=== PATIENT | female | born 1935 | race Two or more races ===

== ENCOUNTER 2016-08-11 13:07 | Inpatient (IN) | payer MEDICAID ==
[2016-08-11] MEDS ORDERED: PRINIVIL20 M1 PO (13:59)
[2016-08-11] MEDS ORDERED: IBUPROFEN200 M2 PO (14:18)
[2016-08-11 15:11] LABS: BASO % 0.5 % (0-2); BASO ABSOLUTE COUNT 0.1 tho/cmm (0.0-0.2); EOSINOPHIL ABSOLUTE COUNT 0.1 tho/cmm (0.0-0.7); HCT-HEMATOCRIT 41.5 % (34.0-49.0); HGB-HEMOGLOBIN 13.8 gm/dl (12.0-15.5); LYMPH ABSOLUTE COUNT 2.5 tho/cmm (0.8-4.5); MCH (MEAN CORPUSCULAR HGB) 27.9 pg (28.0-32.0); MCHC MEAN CORPUSCULAR HGB CONC 33.3 % (32.0-36.0); MEAN PLATELET VOLUME 9.9 cmc (9.4-12.4); MONO % 6.6 % (0-12); MONOCYTE ABSOLUTE COUNT 0.9 tho/cmm (0.0-1.2); NEUTROPHIL ABSOLUTE COUNT 9.5 tho/cmm (1.6-8.0); NEUTROPHIL-AUTOMATED 9.5 tho/cmm (1.6-8.0); NEUTROPHILS % 72.9 % (40-80); PLATELET COUNT 344 tho/cmm (150-450); RED BLOOD COUNT 4.94 mil/cmm (4.00-5.20); RED CELL DISTRIBUTION WIDTH 11.8 % (12.4-16.4); WHITE BLOOD COUNT 13.1 tho/cmm (4.0-10.0)
[2016-08-11 15:26] LABS: ALB/GLOB RATIO 0.7 (0.8-2.0); ALBUMIN 2.9 g/dl (3.5-5.0); ALKALINE PHOSPHATASE 103 U/L (33-138); ANION GAP 12 mmol/L (0-20); AST/SGOT 10 U/L (10-40); BILIRUBIN,TOTAL 0.8 mg/dl (0-1.5); BLOOD UREA NITROGEN 13 mg/dl (6-24); CALCIUM 9.4 mg/dl (8.5-10.5); CARBON DIOXIDE-VENOUS 28 mmol/L (22-32); CHLORIDE 99 mmol/l (96-110); CREATININE 0.96 mg/dl (0.50-1.10); POTASSIUM 4.4 mmol/L (3.7-5.1); SODIUM 135 mmol/L (135-145); eGFR VALUE FOR BLACK 65 mL/Min
[2016-08-11 15:33] LABS: ALT/SGPT <10 U/L (12-78)
[2016-08-11 15:34] LABS: GLUCOSE 505 mg/dL (70-110)
[2016-08-11 18:26] LABS: URINE BILIRUBIN NEGATIVE (NEG); URINE BLOOD LARGE (NEG); URINE GLUCOSE (UA) LARGE (NEG); URINE KETONE NEGATIVE (NEG); URINE LEUKOCYTE ESTERASE POSITIVE (NEG); URINE NITRITE NEGATIVE (NEG); URINE PROTEIN NEGATIVE (NEG); URINE SPECIFIC GRAVITY 1.015 (1.003-1.030)
[2016-08-11 18:29] LABS: URINE APPEARANCE CLEAR; URINE COLOR YELLOW
[2016-08-11 18:47] LABS: URINE EPITHELIAL CELLS 0-5 /[HPF] (0-10)
[2016-08-11 20:48] LABS: MAGNESIUM 1.7 mg/dl (1.8-2.6)
[2016-08-11 23:02] LABS: ANION GAP 10 mmol/L (0-20); BLOOD UREA NITROGEN 11 mg/dl (6-24); CALCIUM 8.7 mg/dl (8.5-10.5); CARBON DIOXIDE-VENOUS 28 mmol/L (22-32); CHLORIDE 105 mmol/l (96-110); CREATININE 0.63 mg/dl (0.50-1.10); GLUCOSE 263 mg/dL (70-110); POTASSIUM 3.6 mmol/L (3.7-5.1); SODIUM 139 mmol/L (135-145); eGFR VALUE FOR BLACK >90 mL/Min
[2016-08-12 06:02] LABS: BASO % 0.5 % (0-2); BASO ABSOLUTE COUNT 0.1 tho/cmm (0.0-0.2); EOS % 2.9 % (0-7); EOSINOPHIL ABSOLUTE COUNT 0.3 tho/cmm (0.0-0.7); HCT-HEMATOCRIT 35.7 % (34.0-49.0); HGB-HEMOGLOBIN 11.9 gm/dl (12.0-15.5); IMMATURE GRANULOCYTES ABSOLUTE 0.03 tho/cmm (0-0.03); IMMATURE GRANULOCYTES PERCENT 0.3 % (0-0.3); LYMPH % 25.8 % (20-45); LYMPH ABSOLUTE COUNT 2.8 tho/cmm (0.8-4.5); MCH (MEAN CORPUSCULAR HGB) 28.3 pg (28.0-32.0); MCHC MEAN CORPUSCULAR HGB CONC 33.3 % (32.0-36.0); MEAN PLATELET VOLUME 9.5 cmc (9.4-12.4); MONO % 8.6 % (0-12); MONOCYTE ABSOLUTE COUNT 0.9 tho/cmm (0.0-1.2); NEUTROPHIL ABSOLUTE COUNT 6.8 tho/cmm (1.6-8.0); NEUTROPHIL-AUTOMATED 6.8 tho/cmm (1.6-8.0); NEUTROPHILS % 61.9 % (40-80); PLATELET COUNT 287 tho/cmm (150-450); RED CELL DISTRIBUTION WIDTH 12.2 % (12.4-16.4)
[2016-08-12 06:15] LABS: ANION GAP 9 mmol/L (0-20); BLOOD UREA NITROGEN 11 mg/dl (6-24); CALCIUM 8.5 mg/dl (8.5-10.5); CARBON DIOXIDE-VENOUS 28 mmol/L (22-32); CHLORIDE 107 mmol/l (96-110); CREATININE 0.54 mg/dl (0.50-1.10); POTASSIUM 3.5 mmol/L (3.7-5.1); SODIUM 140 mmol/L (135-145); eGFR VALUE FOR BLACK >90 mL/Min
[2016-08-12 06:22] LABS: GLUCOSE 112 mg/dL (70-110)
--- NOTE | 2016-08-12 17:43 | NUR ---
PATIENT HAS BEEN COMPLAINING OF VAGINAL PAIN THROUGHOUT THE DAY. PELVIC US DONE AND WET MOUNT COLLECTED. DR RUCKER CONSULTED FOR [place]. WILL CONTINUE TO MONITOR AND TREAT SYMPTOMS UNTIL ON SEES AND GIVES FURTHER ORDERS. PATIENT HAS BLISTER LIKE CYST/SCARS NOTED TO EXTERIOR PELVIS THAT ARE NOT PAINFUL. PATIENT STATES PAIN IS COMING FROM "INSIDE". BLOOD SUGARS HAVE BEEN LESS THAN 250 TODAY AND CONTINUE TO BE MOSTLY CONTROLLED BY MODERATE SSI. PATIENT STARTED ON ORAL DIABETIC MEDICATIONS AND NURTITION TO SEE ABOUT DIABETIC DIET.
[2016-08-13 06:09] LABS: BASO % 0.3 % (0-2); EOS % 2.9 % (0-7); EOSINOPHIL ABSOLUTE COUNT 0.3 tho/cmm (0.0-0.7); HGB-HEMOGLOBIN 12.6 gm/dl (12.0-15.5); IMMATURE GRANULOCYTES ABSOLUTE 0.04 tho/cmm (0-0.03); IMMATURE GRANULOCYTES PERCENT 0.3 % (0-0.3); LYMPH % 24.3 % (20-45); LYMPH ABSOLUTE COUNT 2.9 tho/cmm (0.8-4.5); MCH (MEAN CORPUSCULAR HGB) 28.6 pg (28.0-32.0); MCHC MEAN CORPUSCULAR HGB CONC 34.1 % (32.0-36.0); MCV (MEAN CELL VOLUME) 83.9 fl (82.0-96.0); MEAN PLATELET VOLUME 9.5 cmc (9.4-12.4); MONO % 7.8 % (0-12); MONOCYTE ABSOLUTE COUNT 0.9 tho/cmm (0.0-1.2); NEUTROPHIL ABSOLUTE COUNT 7.6 tho/cmm (1.6-8.0); NEUTROPHIL-AUTOMATED 7.6 tho/cmm (1.6-8.0); NEUTROPHILS % 64.4 % (40-80); PLATELET COUNT 279 tho/cmm (150-450); RED BLOOD COUNT 4.41 mil/cmm (4.00-5.20); WHITE BLOOD COUNT 11.8 tho/cmm (4.0-10.0)
[2016-08-13 06:20] LABS: ANION GAP 11 mmol/L (0-20); BLOOD UREA NITROGEN 8 mg/dl (6-24); CALCIUM 8.5 mg/dl (8.5-10.5); CARBON DIOXIDE-VENOUS 27 mmol/L (22-32); CHLORIDE 103 mmol/l (96-110); CREATININE 0.59 mg/dl (0.50-1.10); POTASSIUM 3.9 mmol/L (3.7-5.1); SODIUM 137 mmol/L (135-145); eGFR VALUE FOR BLACK >90 mL/Min
[2016-08-13 06:25] LABS: GLUCOSE 233 mg/dL (70-110)
--- NOTE | 2016-08-13 14:08 | NUR ---
1200 ASSESSMENT WAS NOT DONE UNTIL 1330 WHEN PATIENT RETURNED FROM OR. TIME IS INCORRECT.
--- NOTE | 2016-08-13 14:16 | NUR ---
CALLED DR. RUCKER ABOUT PRE OP ANTIBIOTIC. PER DR RUCKER NO PRE OP ANTIBIOTIC FOR THE PATIENT'S D&C.
--- NOTE | 2016-08-13 18:46 | NUR ---
CALLED DR LUIS'S OFFICE TO TELL HER ABOUT LOW HEART RATE AND PAUSES IN HEART RATE. CALLED 3 TIMES AND GOT FORWARDED TO DR KELLY. TOOK AN HOUR TO GET AHOLD OF ANYONE. ONCE I GOT AHOLD OF DR KELLY I RECEIVED ORDERS FOR EKG, BMP DRAW AND TO CONSULT TWILA. PATIENT SYMPTOMATIC WHEN UP. DR LUIS DID CALL BACK @ 1700 AFTER TRYING MULTIPLE TIMES AND I DID UPDATE HER.
[2016-08-13 20:43] LABS: ANION GAP 13 mmol/L (0-20); BLOOD UREA NITROGEN 7 mg/dl (6-24); CALCIUM 8.2 mg/dl (8.5-10.5); CARBON DIOXIDE-VENOUS 25 mmol/L (22-32); CHLORIDE 108 mmol/l (96-110); CREATININE 0.65 mg/dl (0.50-1.10); GLUCOSE 237 mg/dL (70-110); POTASSIUM 3.8 mmol/L (3.7-5.1); SODIUM 142 mmol/L (135-145); eGFR VALUE FOR BLACK >90 mL/Min
[2016-08-14] MEDS ORDERED: CLARITIN10 M6 PO (09:45)
[2016-08-14] MEDS ORDERED: BACTRIM DS TAB1 EAC2 PO (09:46)
[2016-08-14] MEDS ORDERED: ULTRAM50 M1 PO (09:48)
[2016-08-14] MEDS ORDERED: NORCO 5-325 TA1 EACH PO (09:48)
[2016-08-14] MEDS ORDERED: GLUCOPHAGE1000 M1 PO (09:55)
[2016-08-14] MEDS ORDERED: GLUCOPHAGE XR500 M1 PO (10:39)
[2016-11-21] MEDS ORDERED: HYDROCODON-ACE1 EA16 PO (21:34)
[2016-11-21] MEDS ORDERED: NORCO 5/3251 TAB PO (22:18)
== END 2016-08-14 12:40 | DRG 988 ==
LOC: EDMED 13:07 → EMR2 19:50 → PCUA 21:30 → ORW 08-13 12:25 → PACU 08-13 12:49 → PCUA 08-13 14:18
PROVIDERS: Emergency Medicine; Family Medicine; Hospitalist; Physician Assistant Medical; ADMIT Family Medicine
PROC: 0UDB7ZX Extraction of Endometrium, Via Natural or Artificial Opening, Diagnostic (ICD-10-PCS; principal; 2016-08-13)
DX: E11.00 Type 2 diabetes mellitus with hyperosmolarity without nonketotic hyperglycemic-hyperosmolar coma (NKHHC) (principal); N39.0 Urinary tract infection, site not specified; R00.1 Bradycardia, unspecified; I10 Essential (primary) hypertension; N76.0 Acute vaginitis; N93.9 Abnormal uterine and vaginal bleeding, unspecified; H55.00 Unspecified nystagmus; L90.0 Lichen sclerosus et atrophicus; Z91.19 Patient's noncompliance with other medical treatment and regimen; Z87.820 Personal history of traumatic brain injury; N95.0 Postmenopausal bleeding; I44.0 Atrioventricular block, first degree; H81.09 Meniere's disease, unspecified ear; Z66 Do not resuscitate; R59.1 Generalized enlarged lymph nodes; K80.20 Calculus of gallbladder without cholecystitis without obstruction; C54.1 Malignant neoplasm of endometrium
CPT/HCPCS: J1650; J1815; J2060; J2270; J3010; J3475; J3480; J7030